=== PATIENT | female | born 1995 ===

== ENCOUNTER 2017-07-11 17:36 | Inpatient (IN) ==
[2017-07-11] MEDS ORDERED: DINOPROSTONE VAG GEL 10 MG SYRINGE VAG ONE ×2 (17:58→18:02)
[2017-07-11 18:17] LABS: Basophils % 0.5 % (0.0-0.8); Eosinophils # 0.1 10*3/uL (0.0-0.87); Eosinophils % 1.3 % (0.00-10.9); Hematocrit 33.5 VOL% (35.7-47.0); Hemoglobin 11.5 GM/DL (12.0-16.0); Immature Granulocytes % 0.3 %; Immature Granulocytes Absolute 0.02 #; Lymphocytes # 1.8 10*3/uL (1.4-4.0); Mean Corpuscular HGB Conc 34.3 GM/DL (32-36); Mean Corpuscular Hemoglobin 30 PG (27-34); Monocytes # 0.5 10*3/uL (0.11-0.8); Monocytes % 7.5 % (1.7-12.7); Neutrophils # 3.8 10*3/uL (1.4-7.4); Neutrophils % 61.4 % (38.7-73.9); Platelet Count 165 T/CUMM (130-400); Red Blood Count 3.85 MC/CUMM (3.8-5.5); Red Cell Distribution Width 13.2 % (9.3-17.3); White Blood Count 6.2 T/CUMM (4-12)
[2017-07-11 18:40] LABS: Albumin 2.7 G/DL (3.4-5.0); Bilirubin,Total 0.4 MG/DL (0.2-1.0); Calcium 8.4 MG/DL (8.5-10.1); Osmolality,Calculated 279.3 MOS/KG (273-304); Total Protein 6.6 G/DL (6.4-8.3)
[2017-07-11] MEDS: LACTATED RINGERS 1,000 ML IV SCH (18:49)
--- NOTE | 2017-07-11 18:51 | OB/GYN History & Physical ---
History of Present Illness Chief complaint: For elective induction of labor. History of present illness: Ms. Mondragon is a 22 year old female who is a primigravida. She presents to the labor department for elective induction of labor due to term . Her CORINNE is 07/13/2017 for an estimated gestational age of 39 weeks. The risk and benefits of been thoroughly discussed with this patient and significant other, plan of care has been discussed with Dr. Ashby and all parties are in agreement plan. The patient received her care through the [facility] in the [facility]. She received routine care throughout and her course was uneventful. labs: She is O+, RPR is nonreactive, rubella is immune, hepatitis B negative, HIV negative, GBS culture is negative. Review of systems is negative with exception of above. 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 - Constitutional General appearance: normal weight, no acute distress - Antepartum / Post Antepartum Exam Cervix - Dilatation: 1 cm Effacement: 50% Station: -2 Rupture: Intact Presentation: Vertex Heart Rate: 140s Breast: bilateral: normal Abdomen obstetrics: Present: bowel sounds normal Vagina: Present: normal moisture Uterus exam: Present: enlarged (Gravid) - Respiratory Respiratory exam: Present: clear to auscultation bilaterally - Cardiovascular Cardiovascular exam: Present: regular rate and rhythm - GI/Abdominal GI/Abdominal exam: Present: normal bowel sounds, soft - Extremities Exam Extremities exam: Present: normal inspection - Neurological Exam Neurological exam: Present: alert, oriented X3 - Psychiatric Psychiatric exam: Present: normal affect, normal mood - Skin Skin exam: Present: normal color, warm Assessment and Plan (1) Term Status: Acute Assessment and plan: Admit IV fluids Prostin gel per protocol IV Pitocin per protocol if indicated Artificial rupture membranes when appropriate Internal monitors if indicated Epidural anesthesia if desired Anticipate Current Visit: Yes Results - Labs CBC & BMP: 07/11/17 18:10 07/11/17 18:10
[2017-07-11] MEDS: MEPERIDINE 50 MG/1 ML VIAL IV PRN (23:14)
[2017-07-11] MEDS: ONDANSETRON 4 MG/2 ML VIAL IV PRN (23:15)
[2017-07-12] MEDS: BUTORPHANOL 2 MG/ML VIAL IV PRN ×2 (01:30→07:51)
[2017-07-12] MEDS ORDERED: OXYTOCIN/LR 20 UNIT/1,000 ML BAG IV SCH (02:00)
[2017-07-12] MEDS ORDERED: ePHEDrine 50 MG/ML AMP IV PRN (02:48)
[2017-07-12] MEDS ORDERED: FAMOTIDINE 20 MG/2 ML VIAL IV ONE (02:48)
[2017-07-12] MEDS ORDERED: CITRIC ACID/SODIUM CITRATE 30 ML UDCUP PO ONE (02:48)
[2017-07-12] MEDS ORDERED: fentaNYL 2 MCG/ROPIV 0.2% EPID 150 ML EPIDURAL SCH (02:49)
[2017-07-12] MEDS: MEPERIDINE 50 MG/1 ML VIAL IV PRN ×3 (03:50→09:57)
[2017-07-12] MEDS: LACTATED RINGERS 1,000 ML IV SCH ×2 (04:31→09:59)
[2017-07-12] MEDS: ONDANSETRON 4 MG/2 ML VIAL IV PRN ×2 (06:03→09:58)
[2017-07-12] MEDS ORDERED: LIDOCAINE 1% 50 ML VIAL ONE (07:40)
[2017-07-12] MEDS ORDERED: miSOPROStol 200 MCG TABLET ONE (07:41)
[2017-07-12] MEDS ORDERED: METHYLERGONOVINE 0.2 MG/1 ML AMP ONE (07:42)
[2017-07-12 10:09] LABS: Cord Arterial Blood HCO3 22.3 MMOL/L
--- NOTE | 2017-07-12 10:10 | Event Note ---
HPI: Ms. Mondragon presented to the labor department for elective induction of labor due to term . The risk and benefits were thoroughly discussed with the patient and significant other, plan of care was discussed with Dr. Ashby and all parties were in agreement plan. Stage I: The patient was admitted she received Prostin gel per protocol. She progressed to labor throughout the night and was eventually started on IV Pitocin per protocol. She continued to progress with a CAT 1 tracing. Artificial rupture membranes was performed with clear fluid noted. The patient received IV pain meds for pain control. Otherwise she had an uneventful course of labor. Stage II: The patient was complete and complained of pressure and desire to push. She pushed for approximately 45 minutes after which time she started to experience maternal exhaustion. 1% lidocaine was utilized to anesthetize the perineum to prepare the patient for an episiotomy. A second-degree midline episiotomy was performed the patient continued to push for approximately 3-5 more minutes. The patient also continued to complain of exhaustion and inability to push effectively because of this. Also the tracing was noted to be a CAT 2 tracing therefore the decision to use a vacuum extraction was made. Also Dr. Ashby was on standby in the room at the time the patient was pushing. The vacuum was applied at a +3 station. The patient was instructed to push, she pushed one time for about 10-15 seconds. The 's head was then delivered. A nuchal cord 1 was noted and reduced. The mouth and nose suctioned on perineum. The remainder the infant was then delivered. At 940 a viable female infant was noted. Apgars were 5 at 1 minute and 8 at 5 minutes. weight was 8 pounds and 3 ounces. A cord pH was obtained and sent to the lab. Stage III: A spontaneous delivery of a Dwyer placenta with a three-vessel cord noted. The placenta was further examined appeared to be grossly intact. Vagina and cervix was inspected with no additional tears or lacerations noted. The episiotomy was repaired in the usual fashion. 1% lidocaine was utilized to anesthetize the area for repair. Patient tolerated procedure well. Estimated blood loss was approximately 150 cc. At the time of dictation mother and baby are both in stable condition.
[2017-07-12 10:12] LABS: Cord Venous Blood HCO3 22.4 MMOL/L; Cord Venous Blood PCO2 76.6 MMHG; Cord Venous Blood PO2 13.4 MMHG
[2017-07-12] MEDS ORDERED: ACETAMINOPHEN/CODEINE 300-30 MG TABLET PO PRN (10:13)
[2017-07-12] MEDS ORDERED: BISACODYL 10 MG SUPP RECTAL PRN (11:27)
[2017-07-12] MEDS ORDERED: BENZOCAINE 20%/MENTHOL 0.5% SPRAY 56 GM CAN TOP PRN (11:27)
[2017-07-12] MEDS ORDERED: ACETAMINOPHEN 325 MG TABLET PO PRN (11:27)
[2017-07-12] MEDS ORDERED: DIPH/TET/ACEL PERT BOOSTER VACCINE 0.5 ML VIAL IM ONE (11:27)
[2017-07-12] MEDS ORDERED: MEASLES/MUMPS/RUBELLA VACCINE 0.5 ML VIAL SUBCUT ONE (11:27)
[2017-07-12] MEDS ORDERED: HYDROCORTISONE 2.5% RECTAL CREAM 30 GM TUBE TOP PRN (11:27)
[2017-07-12] MEDS ORDERED: RHO(D) IMMUNE GLOBULIN 300 MCG SYRINGE IM ONE (11:27)
[2017-07-12] MEDS ORDERED: WITCH HAZEL PADS 100/JAR TOP PRN (11:27)
[2017-07-12] MEDS ORDERED: oxyCODONE/ACETAMINOPHEN 5-325 MG TABLET PO PRN (11:27)
[2017-07-12] MEDS ORDERED: LANOLIN 50% CREAM 0.3 OZ TUBE TOP PRN (11:27)
[2017-07-12] MEDS ORDERED: IBUPROFEN 800 MG TABLET PO PRN (11:27)
[2017-07-12] MEDS ORDERED: OXYTOCIN/LR 20 UNIT/1,000 ML BAG IV ONE (11:37)
[2017-07-12] MEDS: oxyCODONE/ACETAMINOPHEN 5-325 MG TABLET PO PRN ×2 (13:24→21:30)
[2017-07-12] MEDS: DOCUSATE SODIUM 100 MG CAPSULE PO SCH (21:30)
[2017-07-13 06:50] LABS: Basophils % 0.2 % (0.0-0.8); Eosinophils # 0.1 10*3/uL (0.0-0.87); Eosinophils % 0.9 % (0.00-10.9); Hematocrit 26.8 VOL% (35.7-47.0); Immature Granulocytes % 0.4 %; Immature Granulocytes Absolute 0.04 #; Lymphocytes # 2.9 10*3/uL (1.4-4.0); Lymphocytes % 27.2 % (21.3-54.2); Mean Corpuscular Hemoglobin 30 PG (27-34); Mean Corpuscular Volume 88.7 FL (87-102); Mean Platelet Volume 12.4 FL (9.6-12.0); Monocytes # 0.7 10*3/uL (0.11-0.8); Monocytes % 6.8 % (1.7-12.7); Neutrophils # 6.8 10*3/uL (1.4-7.4); Neutrophils % 64.5 % (38.7-73.9); Red Cell Distribution Width 13.4 % (9.3-17.3)
[2017-07-13 06:56] LABS: Red Blood Count 3.02 MC/CUMM (3.8-5.5); White Blood Count 10.5 T/CUMM (4-12)
[2017-07-13 06:57] LABS: Hemoglobin 9.1 GM/DL (12.0-16.0); Platelet Count 114 T/CUMM (130-400)
[2017-07-13] MEDS: DOCUSATE SODIUM 100 MG CAPSULE PO SCH ×2 (08:30→20:31)
--- NOTE | 2017-07-13 10:04 | Progress Note ---
Family Medicine PN Sub Interval history: day #1 Status post vaginal Lungs are clear, cardiac exam benign, abdomen soft, uterus is nice and firm. Perineum is intact after the episiotomy Extremities well with no limits and neurologic grossly intact Assessment plan Status post vaginal possible discharge in a.m. Exam (Progress Note) - Constitutional Vitals: Period Temp Pulse Resp BP Sys/Paredes Pulse Ox Last 24 Hr 97 F-97.8 F 78-97 18-20 115-154/71-96 98-99 Results - Labs CBC & BMP: 07/13/17 06:24 07/11/17 18:10 Quality Measures - VTE Contraindication to Pharmacological VTE Prophylaxis: Clinical assessment deems Pt at low risk, no prophalaxis needed
[2017-07-13] MEDS: oxyCODONE/ACETAMINOPHEN 5-325 MG TABLET PO PRN ×2 (10:16→20:31)
[2017-07-13] MEDS: FERROUS SULFATE 325 MG TABLET PO SCH (20:31)
[2017-07-14] MEDS: oxyCODONE/ACETAMINOPHEN 5-325 MG TABLET PO PRN ×2 (06:58→13:42)
[2017-07-14] MEDS: FERROUS SULFATE 325 MG TABLET PO SCH ×2 (08:33→20:12)
[2017-07-14] MEDS: DOCUSATE SODIUM 100 MG CAPSULE PO SCH ×2 (08:33→20:12)
--- NOTE | 2017-07-14 10:15 | OB/GYN Progress Note ---
Assessment and Plan (1) Term Status: Acute Assessment and plan: Admit IV fluids Prostin gel per protocol IV Pitocin per protocol if indicated Artificial rupture membranes when appropriate Internal monitors if indicated Epidural anesthesia if desired Anticipate Current Visit: Yes (2) Vaginal delivery Status: Acute Assessment and plan: 1 4 initiate routine orders. Current Visit: Yes ACIDITY TESTER - PN: Subj Interval history: Stable with no complaints. Bonding well with . Exam ACIDITY TESTER - Constitutional Vitals: Vital Signs Temp Pulse Resp BP Pulse Ox 07/14/17 07:47 97.5 F L 84 18 125/71 98 07/14/17 06:37 18 07/14/17 06:00 18 07/14/17 04:00 98 F 112 H 20 129/61 95 07/14/17 02:00 18 07/14/17 01:00 18 07/14/17 00:00 98.4 F 90 18 131/70 98 07/13/17 20:00 97.9 F 90 18 121/73 98 07/13/17 16:00 97.7 F 102 H 18 110/71 98 07/13/17 11:20 97.6 F 95 H 18 117/69 98 General appearance: no acute distress - Antepartum / Post Post Exam Breast: bilateral: normal Abdomen obstetrics: Present: bowel sounds normal Vagina: Present: normal moisture, discharge (Light lochia rubra) Uterus exam: Present: enlarged (Fundus firm and midline) Anus/Rectum: Present: normal perianal skin (Some swelling and edema) - Respiratory Respiratory exam: Present: clear to auscultation bilaterally - Cardiovascular Cardiovascular exam: Present: regular rate and rhythm - GI/Abdominal GI/Abdominal exam: Present: normal bowel sounds, soft - Extremities Exam Extremities exam: Present: normal inspection - Back Exam Back exam: Present: normal inspection - Neurological Exam Neurological exam: Present: alert, oriented X3 - Psychiatric Psychiatric exam: Present: normal affect, normal mood - Skin Skin exam: Present: normal color, warm Results - Labs CBC & BMP: 07/13/17 06:24 07/11/17 18:10
[2017-07-15 07:32] VITALS: BP 120/82
[2017-07-15] MEDS: FERROUS SULFATE 325 MG TABLET PO SCH (08:53)
[2017-07-15] MEDS: DOCUSATE SODIUM 100 MG CAPSULE PO SCH (08:53)
--- NOTE | 2017-07-15 11:06 | Discharge Summary ---
Hospital Course - Hospital Course Hospital Course: Ms. Mondragon presented to the labor department for elective induction of labor due to term . She subsequently delivered a viable no complications. She has followed a normal course and she has done well. Her perineum is intact with slight edema noted. Her pain level is minimal. Her bleeding is minimal with no odor. She has not exhibited any signs of infection. She is voiding without difficulty. Bowel sounds are present she has had a normal bowel movement. Contraception options have been discussed with this patient and she thinks she wants to have the Nexplanon yaneth inserted and will do so at her visit. She will be discharged home prescription for pain and a follow-up appointment in our office. Diagnosis - Discharge Diagnosis (1) Term Status: Acute (2) Vaginal delivery Status: Acute Specialty Discharge - Follow Up or Referrals Follow up with: Chaz Ashby MD [Physician] - (Follow-up in 6 weeks.) Discharge Plan - Discharge Data Disposition: Disch To Home/Self Care Condition at Discharge: Stable Discharge Diet: advance to your usual diet, regular diet Activity: resume usual activities as tolerated Hygiene: may shower Weight Bearing at Discharge: weight bear as tolerated Driving: no restrictions Contact your physician if you experience:: fever over 101, pain uncontrolled by pain medications - Discharge Medications New Ferrous Sulfate Tab [Feosol Original Tab] 325 mg PO BID #60 tablet Ibuprofen Tab [Motrin Tab] 800 mg PO Q6H PRN #30 tablet PRN Reason: Pain Moderate (4-7) oxyCODONE/ACETAMINOPHEN 5-325 [Percocet 5-325] 2 tablet PO Q6H PRN #30 tablet PRN Reason: Pain Severe (8-10) - Follow Up or Referral Follow Up: Chaz Ashby MD [Physician] - - Forms/Instructions Instructions: Perineal Care (DC), Vaginal Delivery (DC), Bleeding (DC) Exam - Constitutional Vitals: Period Temp Pulse Resp BP Sys/Paredes Pulse Ox Last 24 Hr 96.7 F-97.8 F 63-96 18-20 110-145/50-86 95-98 General appearance: no acute distress - Head Head exam: Present: normal inspection - Neck Neck exam: Present: normal inspection - Respiratory Respiratory exam: Present: clear to auscultation bilaterally - Cardiovascular Cardiovascular exam: Present: regular rate and rhythm - GI/Abdominal GI/Abdominal exam: Present: normal bowel sounds, soft - Extremities Exam Extremities exam: Present: normal inspection - Neurological Exam Neurological exam: Present: alert, oriented X3 - Psychiatric Psychiatric exam: Present: normal affect, normal mood - Skin Skin exam: Present: normal color, warm DS: Provider Date of admission: 07/11/17 17:36 Primary care physician: . No PCP Attending physician on admission: Chaz Ashby MD Consults: 07/11/17 17:57 Consult to Anesthesiology [CONS] Routine Consulting Provider: Reason for Anesthesiology: Epidural Consult Comment: Epidural for pain managment 07/12/17 11:27 Consult to Automatic Teller Machine Servicer [CONS] Routine Consult Automatic Teller Machine Servicer: Breast Feeding Discharging clinician: Chloe Ahmadi CNM Expected date of discharge: 07/15/17
== END 2017-07-15 13:25 | disposition home or self-care (01) | DRG 560 ==
LOC: N.LD 17:36 → N.OB 07-12 11:33
PROVIDERS: ADMIT Obstetrics & Gynecology; ATTEND Obstetrics & Gynecology

== ENCOUNTER 2020-08-15 09:58 | Inpatient (IN) ==
[2020-08-15] MEDS ORDERED: MORPHINE 10 MG/1 ML VIAL IV STA (10:34)
[2020-08-15] MEDS ORDERED: ACETAMINOPHEN 325 MG TABLET PO PRN (12:29)
[2020-08-15] MEDS ORDERED: NALOXONE 0.4 MG/ML VIAL IV PRN (12:29)
[2020-08-15] MEDS ORDERED: ONDANSETRON 4 MG/2 ML VIAL IV PRN (12:29)
[2020-08-15] MEDS ORDERED: MAGNESIUM HYDROXIDE SUSP 30 ML UDCUP PO PRN (12:29)
[2020-08-15] MEDS ORDERED: IBUPROFEN 800 MG TABLET PO PRN (12:29)
[2020-08-15] MEDS ORDERED: BISACODYL 10 MG SUPP RECTAL PRN (12:29)
[2020-08-15] MEDS ORDERED: HYDROmorphone PCA 30 MG/30 ML SYRINGE IV SCH (12:30)
[2020-08-15] MEDS ORDERED: SODIUM CHLORIDE 0.45% 1,000 ML IV SCH (12:30)
[2020-08-15 12:36] LABS: Basophils % 0.1 % (0.0-0.8); Hematocrit 31.1 VOL% (35.7-47.0); Hemoglobin 10.5 GM/DL (12.0-16.0); Immature Granulocytes % 0.7 %; Lymphocytes # 1.1 10*3/uL (1.4-4.0); Mean Corpuscular HGB Conc 33.8 GM/DL (32-36); Mean Corpuscular Volume 88.1 FL (87-102); Mean Platelet Volume 10.6 FL (9.6-12.0); Monocytes % 5.6 % (1.7-12.7); Neutrophils % 85.6 % (38.7-73.9); Platelet Count 215 T/CUMM (130-400); Red Blood Count 3.53 MC/CUMM (3.8-5.5); White Blood Count 13.7 T/CUMM (4-12)
[2020-08-15] MEDS: DEXTROSE 5% LACTATED RINGERS 1,000 ML IV SCH ×2 (13:55→21:50)
[2020-08-15] MEDS ORDERED: HYDROmorphone 2 MG/1 ML VIAL IV PRN ×2 (14:08→15:17)
[2020-08-15] MEDS ORDERED: PROMETHAZINE 25 MG/1 ML VIAL IM PRN (14:08)
[2020-08-15] MEDS ORDERED: ENOXAPARIN 40 MG/0.4 ML SYRINGE SUBCUT SCH (14:30)
[2020-08-15] MEDS: AMPICILLIN INJ 1,000 MG in SODIUM CHLORIDE 0.9% 100 ML IV SCH ×2 (16:30→22:34)
[2020-08-15] MEDS ORDERED: AMPICILLIN 1,000 MG VIAL ONE ×2 (16:46→22:29)
[2020-08-15 18:47] LABS: Apearance,Urine CLEAR (Clear); Bilirubin,Urine Negative (Negative); Blood, Urine Small mg/dL (Negative); Glucose,Urine (UA) 50 mg/dL (Negative); Ketones,Urine Negative (Negative); Nitrite,Urine Negative (Negative); Protein,Urine Negative; RBC,Urine 5 /HPF (0-4); Urine Color Straw (Yellow); Urine Specific Gravity 1.006 (1.001-1.035); Urine Urobilinogen < 2.0 EU/DL (0.2-1.0); WBC,Urine 1 /HPF (0-6)
[2020-08-15] MEDS: DOCUSATE SODIUM 100 MG CAPSULE PO SCH (21:00)
[2020-08-15] MEDS ORDERED: SODIUM CHLORIDE 0.9% 100 ML IV ONE (22:30)
[2020-08-16] MEDS ORDERED: AMPICILLIN 1,000 MG VIAL ONE (04:21)
[2020-08-16] MEDS ORDERED: SODIUM CHLORIDE 0.9% 100 ML IV ONE (04:22)
[2020-08-16] MEDS: AMPICILLIN INJ 1,000 MG in SODIUM CHLORIDE 0.9% 100 ML IV SCH (04:39)
[2020-08-16 06:32] LABS: Basophils % 0.3 % (0.0-0.8); Eosinophils # 0.1 10*3/uL (0.0-0.87); Eosinophils % 0.9 % (0.00-10.9); Hematocrit 24.9 VOL% (35.7-47.0); Hemoglobin 8.2 GM/DL (12.0-16.0); Immature Granulocytes Absolute 0.08 #; Lymphocytes # 1.9 10*3/uL (1.4-4.0); Lymphocytes % 23.3 % (21.3-54.2); Mean Corpuscular HGB Conc 32.9 GM/DL (32-36); Mean Corpuscular Volume 90.5 FL (87-102); Mean Platelet Volume 10.1 FL (9.6-12.0); Neutrophils % 64.5 % (38.7-73.9); Platelet Count 193 T/CUMM (130-400); Red Blood Count 2.75 MC/CUMM (3.8-5.5); Red Cell Distribution Width 12.3 % (9.3-17.3)
[2020-08-16] MEDS: DEXTROSE 5% LACTATED RINGERS 1,000 ML IV SCH (06:42)
[2020-08-16] MEDS: DOCUSATE SODIUM 100 MG CAPSULE PO SCH (09:21)
[2020-08-16 10:23] VITALS: BP 98/45
== END 2020-08-16 10:15 | disposition home or self-care (01) | DRG 566 ==
LOC: EDBD → EDUNIT# → N.ED 09:58 → N.EDINP 12:29 → N.OB 13:42
PROVIDERS: ADMIT Obstetrics & Gynecology; ATTEND Obstetrics & Gynecology

== ENCOUNTER 2020-10-13 17:51 | Inpatient (IN) ==
[2020-10-13] MEDS ORDERED: ONDANSETRON 4 MG/2 ML VIAL IV PRN (18:09)
[2020-10-13] MEDS ORDERED: LIDOCAINE 1% 50 ML VIAL MISC INJ ONE (18:09)
[2020-10-13] MEDS ORDERED: MEPERIDINE 50 MG/1 ML VIAL IV PRN (18:09)
[2020-10-13] MEDS ORDERED: BUTORPHANOL 2 MG/ML VIAL IV PRN (18:09)
[2020-10-13 18:28] LABS: Basophils % 0.1 % (0.0-0.8); Eosinophils % 0.2 % (0.00-10.9); Hematocrit 32.7 VOL% (35.7-47.0); Hemoglobin 10.7 GM/DL (12.0-16.0); Immature Granulocytes % 0.5 %; Immature Granulocytes Absolute 0.07 #; Lymphocytes # 2.5 10*3/uL (1.4-4.0); Mean Corpuscular HGB Conc 32.7 GM/DL (32-36); Mean Corpuscular Volume 82.8 FL (87-102); Mean Platelet Volume 10.6 FL (9.6-12.0); Monocytes % 6.9 % (1.7-12.7); Neutrophils % 73.3 % (38.7-73.9); Platelet Count 206 T/CUMM (130-400); Red Blood Count 3.95 MC/CUMM (3.8-5.5); Red Cell Distribution Width 12.8 % (9.3-17.3); White Blood Count 13.1 T/CUMM (4-12)
[2020-10-13] MEDS ORDERED: LACTATED RINGERS 1,000 ML IV SCH (18:30)
[2020-10-13] MEDS ORDERED: OXYTOCIN/LR 20 UNIT/1,000 ML BAG IV SCH (18:30)
[2020-10-13 18:54] LABS: Alanine Aminotransferase 11 U/L (13-56); Albumin 2.5 G/DL (3.4-5.0); Alkaline Phosphatase 279 U/L (45-117); Aspartate Amino Transferase 19 U/L (0-37); Bilirubin,Total < 0.39 MG/DL (0.2-1.0); Blood Urea Nitrogen 10 MG/DL (7-18); Calcium 8.4 MG/DL (8.5-10.1); Estimated Glom Filtration Rate 123 ML/MIN; Glucose 98 MG/DL (74-106); Osmolality,Calculated 273.7 MOS/KG (273-304); Total Protein 6.8 G/DL (6.4-8.3)
[2020-10-13 19:52] LABS: Cord Venous Blood HCO3 24.4 MMOL/L; Cord Venous Blood PCO2 47.2 MMHG; Cord Venous Blood PO2 37.4 MMHG
[2020-10-13] MEDS ORDERED: BISACODYL 10 MG SUPP RECTAL PRN (23:24)
[2020-10-13] MEDS ORDERED: DIPH/TET/ACEL PERT BOOSTER VACCINE 0.5 ML VIAL IM ONE (23:24)
[2020-10-13] MEDS ORDERED: ACETAMINOPHEN 325 MG TABLET PO PRN (23:24)
[2020-10-13] MEDS ORDERED: LANOLIN 50% CREAM 0.3 OZ TUBE TOP PRN (23:24)
[2020-10-13] MEDS ORDERED: oxyCODONE/ACETAMINOPHEN 5-325 MG TABLET PO PRN ×2 (23:24)
[2020-10-13] MEDS ORDERED: HYDROCORTISONE 2.5% RECTAL CREAM 30 GM TUBE TOP PRN (23:24)
[2020-10-13] MEDS ORDERED: BENZOCAINE 20%/MENTHOL 0.5% SPRAY 56 GM CAN TOP PRN (23:24)
[2020-10-13] MEDS ORDERED: MEASLES/MUMPS/RUBELLA VACCINE 0.5 ML VIAL SUBCUT ONE (23:24)
[2020-10-13] MEDS ORDERED: RHO(D) IMMUNE GLOBULIN 300 MCG SYRINGE IM ONE (23:24)
[2020-10-13] MEDS ORDERED: WITCH HAZEL PADS 100/JAR TOP PRN (23:24)
[2020-10-13] MEDS ORDERED: OXYTOCIN/LR 20 UNIT/1,000 ML BAG IV ONE (23:24)
[2020-10-13] MEDS: IBUPROFEN 800 MG TABLET PO PRN (23:40)
[2020-10-14 06:11] LABS: Basophils % 0.1 % (0.0-0.8); Eosinophils % 0.1 % (0.00-10.9); Hematocrit 29.4 VOL% (35.7-47.0); Hemoglobin 9.6 GM/DL (12.0-16.0); Immature Granulocytes % 0.6 %; Immature Granulocytes Absolute 0.09 #; Lymphocytes # 1.9 10*3/uL (1.4-4.0); Lymphocytes % 11.9 % (21.3-54.2); Mean Corpuscular HGB Conc 32.7 GM/DL (32-36); Mean Corpuscular Volume 83.3 FL (87-102); Mean Platelet Volume 11.2 FL (9.6-12.0); Neutrophils % 80.3 % (38.7-73.9); Platelet Count 193 T/CUMM (130-400); Red Blood Count 3.53 MC/CUMM (3.8-5.5); Red Cell Distribution Width 12.9 % (9.3-17.3); White Blood Count 15.8 T/CUMM (4-12)
[2020-10-14] MEDS: DOCUSATE SODIUM 100 MG CAPSULE PO SCH ×2 (08:52→20:43)
[2020-10-14 16:37] LABS: Hematocrit 28.8 VOL% (35.7-47.0); Hemoglobin 9.3 GM/DL (12.0-16.0)
[2020-10-14] MEDS: IBUPROFEN 800 MG TABLET PO PRN (19:50)
[2020-10-15 07:33] VITALS: BP 96/61
[2020-10-15] MEDS: DOCUSATE SODIUM 100 MG CAPSULE PO SCH (08:46)
== END 2020-10-15 12:30 | disposition home or self-care (01) | DRG 560 ==
LOC: N.LDOUT 17:51 → N.LD 17:52 → N.OB 23:20
PROVIDERS: ADMIT Obstetrics & Gynecology; ATTEND Obstetrics & Gynecology